=== PATIENT | female | born 1960 | race Caucasian/White ===

== ENCOUNTER 2017-12-13 09:44 | Emergency (ER) | payer OTHER ==
[2017-12-13 09:53] VITALS: RESP 18; TEMP 98.1
[2017-12-13] MEDS ORDERED: KETOROLAC 15 MG/1 ML SDV IVP ONE (10:12)
[2017-12-13] MEDS ORDERED: LORazepam 2 MG/ML INJ IVP ONE (10:12)
--- NOTE | 2017-12-13 10:17 | EDPHY ---
H & P Stated Complaint: Fall, epigastric/back/shoulder pain HPI/ROS: CHIEF COMPLAINT: Multiple sites of pain secondary to a fall HISTORY OF PRESENT ILLNESS: The patient is an anxious 57 y/o female arriving via EMS complaining of multiple sites of extremity pain, abdominal pain, and back pain secondary to a mechanical fall from standing while at work this morning. 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 She denies head strike or loss of consciousness. She now complains of pain in multiple places including her epigastrium, lower rib pain bilaterally, thoracic and lumbar pain , and right extremity pain. She is unable to really localize or describe her pain well and is quite anxious. No CHRISTIANSEN or neck pain. No weakness or paresthesias. She reports she is normally healthy. REVIEW OF SYSTEMS: Constitutional: No weakness Eyes: No visual changes or eye pain ENT: No dental trauma Neck: No pain or injury Respiratory: No shortness of breath Cardiac: No chest pain Gastrointestinal: see HPI Back: see HPI Genitourinary: No hematuria Musculoskeletal: see HPI Skin: No lacerations Neurological: No headache, no dizziness - Personal History Current Tetanus/Diphtheria Vaccine: Yes Current Tetanus Diphtheria and Acellular Pertussis (TDAP): Yes - Medical/Surgical History PMH: PMH includes: 1. Liver meningioma 2. 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 - Physical Exam Exam: General Appearance: Alert, no distress, appears uncomfortable, tenderness seems out of proportion to palpation and mechanism. Head: Atraumatic Eyes: No conjunctival erythema, PERRLA, EOMI ENT, Mouth: No hemotympanum, no oral trauma, no bony tenderness Neck: Non-tender, full range of motion without pain Respiratory: No chest wall tenderness, lungs clear bilaterally Cardiovascular: Regular rate and rhythm Chest: Bilateral lower lateral rib tenderness Abdomen: Abdomen is soft, epigastric tenderness Skin: No lacerations, no abrasions Back: Midline midthoracic tenderness, paraspinous tenderness extending from midthoracic through lumbar region, no midline lumbar tenderness. Extremities: Pelvis is stable and nontender; no extremity tenderness or deformity, full range of motion without pain Neurological: A&Ox3, normal motor function, normal sensory exam, cranial nerves intact Psychiatric: Anxious Constitutional: Initial Vital Signs Temperature (C) 36.7 C 12/13/17 09:51 Heart Rate 68 12/13/17 09:51 Respiratory Rate 18 12/13/17 09:51 Blood Pressure 184/96 H 12/13/17 09:51 O2 Sat (%) 100 12/13/17 09:51 O2 Delivery Mode Room Air Allergies/Adverse Reactions: No Known Allergies Allergy (Unverified 12/13/17 09:54) Home Medications: Medication Instructions Recorded Levothyroxine 12/13/17 Medical Decision Making - Diagnostics Imaging Results: Chest X-Ray 12/13/17 10:13 Impression: Negative chest. Lumbar Spine X-Ray 12/13/17 10:16 Impression: Possible nondisplaced fractures through the right transverse processes of L2 and L3, otherwise negative lumbar spine radiographs. ED Course/Re-evaluation: 57 y/o female complaining of pain in multiple locations secondary to a mechanical fall from standing this morning. She is difficult to assess and examine due to her dramatic response to any palpation. She has pronounced paraspinous tenderness along her entire spine and part of her chest wall and abdomen, which is much higher than expected due to the minor mechanism of injury. Plan for chest and lumbar spine x-rays, symptom management, and reassessment. 30mg IV Toradol and 1mg IV Ativan ordered. She feels much better after these medications. Reexamined, abd benign, no midline spinous tenderness , mild chest wall tenderness. Will obs. X-rays are negative for acute process. 1105: Reassessed patient and discussed findings. She is greatly relieved, feels much better after IV Toradol and Ativan. Abd exam remains benign. Ambulates with a steady gait. Safe/stable for d/c. 12/15/170: I reviewed the Xray reports and the radiologist questions the possibility of lumbar spine transverse process fractures. I called the pt to inform her of the possible fxs. She has mild pain in the lower back, but more pain in her ribs. Will f/u with PCP. Differential Diagnosis: Differential diagnosis includes though it is not limited to fracture, intracranial hemorrhage, pneumothorax, hemothorax, intra-abdominal hemorrhage. - Data Points Medications Given: Discontinued Medications Ketorolac Tromethamine (Toradol) 15 mg IVP EDNOW ONE Stop: 12/13/17 10:13 Last Admin: 12/13/17 10:20 Dose: 15 mg Lorazepam (Ativan Injection) 0.5 mg IVP EDNOW ONE Stop: 12/13/17 10:13 Last Admin: 12/13/17 10:20 Dose: 0.5 mg Departure - Departure Disposition: Home, Routine, Self-Care Clinical Impression: Chest wall pain Fall Qualifiers: Encounter type: initial encounter Qualified Code(s): W19.XXXA - Unspecified fall, initial encounter Back pain Qualifiers: Back pain location: back pain in unspecified location Chronicity: acute Back pain laterality: bilateral Qualified Code(s): M54.9 - Dorsalgia, unspecified Condition: Good Instructions: Back Pain (ED), Fall Prevention (ED) Additional Instructions: 1. Use Tylenol and ibuprofen as directed as needed for pain over the next few days. 2. Expect to feel more sore over the next 1-2 days. You can try apply ice or heating pad to sore areas if helpful. 3. Follow up with your primary care provider for unimproved symptoms over the next few days. 4. Return to the ED for worsening of condition. Adult Pain & Fever Control: We recommend Acetaminophen (Tylenol) and Ibuprofen (Motrin,Advil) for pain and fever control. When fever is high or pain severe, both drugs can be used at the same time, but at different intervals. Please note the time differences. Your dose is: Acetaminophen 650mg every 4 to 6 hours Ibuprofen 600mg every 6-8 hours with food Note: do not take Acetaminophen with Hydrocodone (Vicodin, Lortab) or Oxycodone (Percocet). These medications also contain Acetaminophen. No more than 3000mg of Acetaminophen should be taken in 24 hours (for an adult). Referrals: Louann Angel MD [[facility] Primary Care Provider] - As per Instructions Report Scribed for: Helen Bolaños Report Scribed by: Valeri Guillen Date of Report: 12/13/17 Time of Report: 10:04 Physician Review and Approval Statement: 12/13/17 10:04 Portions of this note were transcribed by a medical reception specialist. I personally performed a history, physical exam, medical decision making, and confirmed accuracy of information the transcribed note.
[2017-12-13 11:18] VITALS: BP 143/88; PULSE 62; O2SAT 96
== END 2017-12-13 11:55 | disposition home or self-care (01) ==
DX: S29.9XXA Unspecified injury of thorax, initial encounter (principal); S39.92XA Unspecified injury of lower back, initial encounter; W01.0XXA Fall on same level from slipping, tripping and stumbling without subsequent striking against object, initial encounter; Y92.89 Other specified places as the place of occurrence of the external cause; Y99.0 Civilian activity done for income or pay; Y93.89 Activity, other specified
CPT/HCPCS: 82947-QW; 96374; J1885; J2060

== ENCOUNTER 2018-08-20 16:02 | Emergency (ER) | payer OTHER ==
[2018-08-20] MEDS ORDERED: LORazepam 2 MG/ML INJ IVP ONE (16:08)
--- NOTE | 2018-08-20 16:11 | EDPHY ---
H & P Time Seen by Provider: 08/20/18 16:08 HPI/ROS: HPI: This is a 57-year-old female who presents with Chief Complaint: Chest pain, panic attack Location: chest Quality: Pain, dyspnea Duration: Prior to arrival Signs and Symptoms: + shortness of breath at rest, + shortness of breath on exertion, no cough, no palpitations, no lower extremity edema, no wheezing, no orthopnea, no paroxysmal nocturnal dyspnea, no fever, no injury/trauma, no hemoptysis, no carpal pedal spasms Timing: Acute onset, lasting 15-30 minute Severity: Moderate Context: Patient presents via EMS with sudden onset of epigastric nonradiating pain and she dyspnea that started after she received a scam phone call. 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 She reports that she became extremely anxious and scared that she was going to lose her house. She reports that she started to breathe fast and started to cry. She then started to developed epigastric bandlike discomfort in the lower anterior chest that was nonradiating in nature. She denies any diaphoresis, nausea, vomiting, dizziness. No family history of cardiac disease. Modifying Factors: None Comment: ROS: A comprehensive 10 system review of systems is otherwise negative aside from elements mentioned in the history of present illness. MEDICAL/SURGICAL/SOCIAL HISTORY: Medical history: Hypothyroidism, liver meningioma, postmenopausal Surgical history: Denies Social history: . 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 Nonsmoker. CONSTITUTIONAL: Anxious, rapid breathing pattern, physically fit middle-aged white female, awake and alert, no obvious distress HEENT: Atraumatic and normocephalic, PERRL, EOMI. Wears glasses. Nares patent ; no rhinorrhea; no nasal mucosal edema. Tympanic membranes clear. Oropharynx clear, no exudate and moist pink mucosa. Airway patent. No lymphadenopathy. No meningismus. Cardiovascular: Normal S1/S2, regular rate, regular rhythm, without murmur rub or gallop. PULMONARY/CHEST: Symmetrical and nontender. Clear to auscultation bilaterally. Good air movement. No accessory muscle usage. ABDOMEN: Soft, nondistended, nontender, no rebound, no guarding, no peritoneal signs, no masses or organomegaly. No CVAT. EXTREMITIES: 2/2 pulses, strength 5/5, no deformities, no clubbing, no cyanosis or edema. NEUROLOGICAL: no focal neuro deficits. GCS 15. SKIN: Warm and dry, no erythema. no rash. Good capillary refill. Source: Patient, EMS Exam Limitations: Language barrier (Mosotho) - Medical/Surgical History Hx Asthma: No Hx Chronic Respiratory Disease: No Hx Diabetes: No Hx Cardiac Disease: No Hx Renal Disease: No Hx Cirrhosis: No Hx Alcoholism: No Hx HIV/AIDS: No Hx Splenectomy or Spleen Trauma: No Other PMH: PMH: liver menengioma, hypothyriod - Social History Smoking Status: Never smoked Constitutional: Initial Vital Signs Temperature (C) 36.8 C 08/20/18 16:29 Heart Rate 78 08/20/18 16:29 Respiratory Rate 18 08/20/18 16:29 Blood Pressure 178/98 H 08/20/18 16:29 O2 Sat (%) 94 08/20/18 16:29 O2 Delivery Mode Room Air Allergies/Adverse Reactions: egg [eggs] Allergy (Verified 08/20/18 16:34) Home Medications: Medication Instructions Recorded Levothyroxine 12/13/17 Medical Decision Making - Diagnostics Imaging Results: Imaging Impressions Chest X-Ray 08/20/18 16:08 Impression: Stable chest without acute cardiopulmonary process. ED Course/Re-evaluation: Vital signs reviewed and shows elevated blood pressure EKG upon arrival shows inverted T-waves in V1 and V2. No acute ST elevation. Laboratory studies and chest x-ray ordered Given IV Ativan 1 mg upon arrival. 1626: Notified by tech that troponin is 0.01 1650: Labs reviewed. No signs of leukocytosis/anemia/platelet dysfunction/YOUSUF/ elevated LFTs/electrolyte imbalance/pancreatitis. Chest x-ray my read shows no opacity, no effusion, no widened mediastinum, no pneumothorax. 1655: Reassessed patient. Blood pressure within normal limits. Reports complete relief of epigastric and chest pain and shortness of breath. She is sleeping soundly with her at bedside. Discussed T-wave inversions in her EKG but no acute ischemic changes. She will follow up with her primary care provider. HEART score=2 low risk I reviewed the share decision making instrument with the patient, including risk of MACE, and the patient (and family) that are in agreement with the chosen disposition. This patient was seen under the supervision of my secondary supervising physician. I evaluated care for this patient independently. Discussed this patient with Dr. Bang. Differential Diagnosis: Chest pain including but not limited to myocardial ischemia, pulmonary embolus, chest wall pain, pleural inflammation and pulmonary infectious causes. - Data Points Laboratory Results: Laboratory Results 08/20/18 16:02 08/20/18 16:02 08/20/18 08/20/18 08/20/18 16:16 16:02 16:02 WBC 6.89 10^3/uL 10^3/uL (3.80-9.50) RBC 5.74 10^6/uL H 10^6/uL (4.18-5.33) Hgb 15.9 g/dL g/dL (12.6-16.3) Hct 46.8 % % (38.0-47.0) MCV 81.5 fL fL (81.5-99.8) MCH 27.7 pg L pg (27.9-34.1) MCHC 34.0 g/dL g/dL (32.4-36.7) RDW 12.8 % % (11.5-15.2) Plt Count 247 10^3/uL 10^3/uL (150-400) MPV 10.1 fL fL (8.7-11.7) Neut % (Auto) 61.3 % % (39.3-74.2) Lymph % (Auto) 30.3 % % (15.0-45.0) [place] % (Auto) 7.0 % % (4.5-13.0) Eos % (Auto) 0.9 % % (0.6-7.6) Baso % (Auto) 0.1 % L % (0.3-1.7) Nucleat RBC Rel Count 0.0 % % (0.0-0.2) Absolute Neuts (auto) 4.22 10^3/uL 10^3/uL (1.70-6.50) Absolute Lymphs (auto) 2.09 10^3/uL 10^3/uL (1.00-3.00) Absolute Monos (auto) 0.48 10^3/uL 10^3/uL (0.30-0.80) Absolute Eos (auto) 0.06 10^3/uL 10^3/uL (0.03-0.40) Absolute Basos (auto) 0.01 10^3/uL L 10^3/uL (0.02-0.10) Absolute Nucleated RBC 0.00 10^3/uL 10^3/uL (0-0.01) Immature Gran % 0.4 % % (0.0-1.1) Immature Gran # 0.03 10^3/uL 10^3/uL (0.00-0.10) Sodium 138 mEq/L mEq/L (135-145) Potassium 4.4 mEq/L mEq/L (3.3-5.0) Chloride 103 mEq/L mEq/L (97-110) Carbon Dioxide 21 mEq/l L mEq/l (22-31) Anion Gap 14 mEq/L mEq/L (6-14) BUN 17 mg/dL mg/dL (7-23) Creatinine 0.9 mg/dL mg/dL (0.6-1.0) Estimated GFR > 60 Glucose 107 mg/dL H mg/dL (70-100) Calcium 11.9 mg/dL H mg/dL (8.5-10.4) Phosphorus 0.7 mg/dL L mg/dL (2.5-4.5) Total Bilirubin 0.6 mg/dL mg/dL (0.1-1.4) Conjugated Bilirubin 0.0 mg/dL mg/dL (0.0-0.5) Unconjugated Bilirubin 0.6 mg/dL mg/dL (0.0-1.1) AST 24 IU/L IU/L (14-46) ALT 27 IU/L IU/L (9-52) Alkaline Phosphatase 180 IU/L H IU/L (38-126) POC Troponin I 0.01 ng/mL ng/mL (0.00-0.08) Total Protein 8.5 g/dL H g/dL (6.3-8.2) Albumin 4.8 g/dL g/dL (3.5-5.0) Lipase 200 IU/L IU/L (23-300) Medications Given: Discontinued Medications Lorazepam (Ativan Injection) 1 mg IVP EDNOW ONE Stop: 08/20/18 16:09 Last Admin: 08/20/18 16:21 Dose: 1 mg Point of Care Test Results: Chemistry 08/20/18 16:16 POC Troponin I 0.01 ng/mL ng/mL (0.00-0.08) Departure - Departure Disposition: Home, Routine, Self-Care Clinical Impression: Panic attack as reaction to stress, T wave inversion in electrocardiogram Condition: Good Instructions: Anxiety (ED), Panic Attack (ED) Additional Instructions: Please reduce stress as much as possible. If you start to experience a panic attack, try to slow your breathing pattern and remove the stressor. Follow-up with her primary care provider in 5-7 days. Follow-up with Cardiology in 1-2 weeks to discuss EKG showing T-wave inversion. [facility] [Outside] - As per Instructions Heriberto Norris MD [Medical Doctor] - As per Instructions
[2018-08-20 16:20] LABS: PLATELET COUNT 247 10^3/uL (150-400)
[2018-08-20 17:28] VITALS: BP 134/81
--- NOTE | 2018-08-21 11:18 | CPEKG ---
Test Reason : OPEN Blood Pressure : / mmHG Vent. Rate : 074 BPM Atrial Rate : 073 BPM P-R Int : 135 ms QRS Dur : 093 ms QT Int : 422 ms P-R-T Axes : 019 058 072 degrees QTc Int : 469 ms Sinus rhythm Nonspecific T abnrm, anterolateral leads Borderline ST elevation, inferior leads Confirmed by Helen Bolaños ([id number]) on 08/21/2018 11:17:52 AM Referred By: Confirmed By:Helen Bolaños
== END 2018-08-20 17:38 | disposition home or self-care (01) ==
LOC: EDUNIT#
DX: R07.9 Chest pain, unspecified (principal); F41.0 Panic disorder [episodic paroxysmal anxiety]
CPT/HCPCS: 84484-PO; 96374; J2060